=== PATIENT | female | born 1940 | race Caucasian/White ===

== ENCOUNTER 2021-06-23 20:36 | Emergency (ER) | payer OTHER ==
[~2021-06-23] VITALS: Ht 165.1 cm; Wt 90.7 kg
--- NOTE | ~2021-06-23 | EMS ---
[place] [address] EMS Patient Care Report Name: ROSA HENSON [id number] Admission: 06/23/21 Attend Phys: Discharge: 06/23/21 Date of : 38 Report #: [id number] THIS REPORT FOR: //name// Report Transmitted: 06/24/2021 14:46 EMS Care Summary [facility]ident [id number] @ 06/23/2021 19:38 Incident Location [address] [place] [address] Patient ROSA HENSON Female, 81 Years 1940 Patient Address [address] [place], [place] [id number] Patient History Chronic Obstructive Pulmonary Disease (COPD),Breast Cancer,Depression,Anxiety,Urinary Incontinence, Patient Allergies No known allergies, Patient Medications Oxygen, Chief Complaint SHORT OF AIR Disposition Transported No Lights/[place] Dispatch Reason Breathing Problem Transported To [facility] Narrative MED 1 WAS DISPATCHED TO A GAS STATION FOR A SHORTNESS OF BREATH. MED 1 ARRIVED ON SCENE WITHOUT INCIDENT. [place] [id number] EMS Patient Care Report Name: ROSA HENSON Room: [facility]#: [id number] Admission: 06/23/21 Attend Phys: Discharge: 06/23/21 Date of : 38 Report #: [id number] THE PATIENT WHO GOES BY ROSA WAS FOUND ALERT AND ORIENTED WORKING TO BREATH. ROSA STATED THAT SHE HAD BEEN HAVING A HARD TIME BREATHING ALL DAY BUT IT HAS BEEN GETTING WORSE AND SHE DOES NOT THINK THAT SHE CAN MAKE IT HOME. ROSA ALSO STATED THAT SHE THOUGHT THAT HER OXYGEN CONCENTRATOR WAS NOT WORKING RIGHT SO SHE WAS NOT GETTING THE OXYGEN SHE NEEDED. ROSA IS ASSISTED OVER TO THE COT WHERE THE STRAPS ARE FASTENED AND TITHE RAILS PLACED IN THE UPRIGHT POSITION. THE COT IS SECURED IN THE BACK OF THE AMBULANCE WITH THE DOORS CLOSED. VITALS AND A 12-LEAD ARE TAKEN VASCULAR ACCESS IS OBTAINED. MED 1 BEGAN TRANSPORT. EN ROUTE ROSA REST ON THE COT IN NO APPARENT DISTRESS. VITALS ARE MONITORED MEDICAL HISTORY AND ALLERGIES ARE RECEIVED. RADIO REPORT IS GIVEN TO THE HOSPITAL WITH NO QUESTIONS OR ORDERS RECEIVED. MED 1 ARRIVED AT DESTINATION WITHOUT INCIDENT. PATIENT CARE AND REPORT IS GIVEN TO STAFF ROSA IS MOVED OVER TO THE BED IN ROOM 2. MED 1 CLEAR. CAITIE PASTOR, [id number] Initial Vitals @19:59P: 102,R: 22,Pain: 2/10,GCS: 15,SpO2: 98,Revised Trauma: 12, @20:32P: 106,R: 26,BP: 146/91,Pain: 2/10,GCS: 15,EtCO2: 40,SpO2: 98,Revised Trauma: 12, @20:02P: 111,R: 36,Pain: 2/10,GCS: 15,EtCO2: 40,SpO2: 98, @20:07P: 109,R: 23,BP: 146/97,Pain: 2/10,GCS: 15,Temp: 98F,Glucose: 134,EtCO2: 41,SpO2: 100,Revised Trauma: 12, @20:22P: 106,R: 24,BP: 142/93,Pain: 2/10,GCS: 15,EtCO2: 40,SpO2: 98,Revised Trauma: 12, Assessments @20:00MENTAL:Person Oriented,Time Oriented,Place Oriented,Event Oriented,SKIN:HEENT:LUNG SOUNDS:ABDOMEN:PELVIS//GI:EXTREMITIES:Capillary Refill: Right Upper: < 2 Sec,Capillary Refill: Left Lower: < 2 Sec,Capillary Refill: Right Lower: < 2 Sec,Capillary Refill: Left Upper: < 2 Sec,PULSE:Radial: 2+ Normal,NEURO:@20:28MENTAL:Time Oriented,Place Oriented,Event Oriented,Person Oriented,SKIN:HEENT:LUNG SOUNDS:ABDOMEN:PELVIS//GI:EXTREMITIES:Capillary Refill: Left Upper: < 2 Sec,Capillary Refill: Right Upper: < 2 Sec,Capillary Refill: Left Lower: < 2 Sec,Capillary Refill: Right Lower: < 2 Sec,PULSE:Radial: 2+ Normal,NEURO: [place] [address] EMS Patient Care Report Name: ROSA HENSON [facility] [id number] Admission: 06/23/21 Attend Phys: Discharge: 06/23/21 Date of : 38 Report #: [id number] Impression Shortness of breath Procedures @19:50 ALS Assessment Response: UnchangedSucceeded @20:03 IV Therapy - Normal Saline (.9% NaCl) 10cc (20 ga) Site: Hand-Left Response: UnchangedSucceeded @20:02 12-Lead ECG Response: UnchangedSucceeded @20:10 12-Lead ECG Response: UnchangedSucceeded @19:50 Oxygen FlowRate: 2 Device: CO2 Nasal Cannula Response: ImprovedSucceeded Timeline 19:35,Call Received 19:38,Dispatched 19:40,En Route 19:48,On Scene 19:49,At Patient 19:50,ALS Assessment,Response: UnchangedSucceeded, 19:50,Oxygen FlowRate: 2 Device: CO2 Nasal Cannula Response: ImprovedSucceeded, 19:59,BP: 140/ M,PULSE: 102,RR: 22 R,SPO2: 98 Ox,ETCO2: ,BG: ,PAIN: 2,GCS: 15, 20:02,12-Lead ECG,Response: UnchangedSucceeded, 20:02,BP: / M,PULSE: 111,RR: 36 R,SPO2: 98 Ox,ETCO2: 40 ,BG: ,PAIN: 2,GCS: 15, 20:03,IV Therapy - Normal Saline (.9% NaCl) 10cc 20 ga Site: Hand-Left,Response: UnchangedSucceeded, 20:06,Depart Scene 20:07,BP: 146/97 M,PULSE: 109,RR: 23 R,SPO2: 100 Ox,ETCO2: 41 ,B,PAIN: 2,GCS: 15, 20:10,12-Lead ECG,Response: UnchangedSucceeded, 20:22,BP: 142/93 M,PULSE: 106,RR: 24 R,SPO2: 98 Ox,ETCO2: 40 ,BG: ,PAIN: 2,GCS: 15, 20:31,At Destination 20:32,BP: 146/91 M,PULSE: 106,RR: 26 R,SPO2: 98 Ox,ETCO2: 40 ,BG: ,PAIN: 2,GCS: 15, 21:12,Call Closed Disclaimer v1.1 Copyright 2020 [employer] This EMS Care Summary contains data elements from the applicable legal record (which may be displayed differently). It is designed to provide pertinent information for the following purposes: continuity of care, clinical quality, and state data reporting. The complete legal record is available to ED staff and administrators of the receiving hospital in [facility]'s Patient Tracker. All data is provided "as is."
[2021-06-23] MEDS ORDERED: ZOLOFT50 M1 PO (20:40)
[2021-06-23 21:08] LABS: INFLUENZA A ANTIGEN Negative (Negative); INFLUENZA B ANTIGEN Negative (Negative)
[2021-06-23 22:06] LABS: ABSOLUTE BASOPHILS 0.1 thou/uL (0.0-0.2); ABSOLUTE EOSINOPHILS 0.1 thou/uL (0.0-0.7); ABSOLUTE LYMPHOCYTES 1.7 thou/uL (0.8-5.3); ABSOLUTE MONOCYTES 0.9 thou/uL (0.0-1.2); ABSOLUTE NEUTROPHILS 8.7 thou/uL (1.6-8.1); BASOPHILS 0.9 %; EOSINOPHILS 1.1 %; HEMATOCRIT 40.8 % (37.0-47.0); HEMOGLOBIN 13.2 gm/dL (12.0-15.0); LYMPHOCYTES 14.5 %; MCH 28.6 pg (26.0-34.0); MCHC 32.5 g/dL (28.0-37.0); MONOCYTES 7.7 %; MPV 7.9 fl. (7.2-11.1); NUCLEATED RBCS 0 /100WBC; PLATELET COUNT* 223 thou/uL (150-400); POLYS 75.8 %; RBC 4.64 mil/uL (4.20-5.00); RDW-CV 14.6 % (10.5-14.5); WBC 11.5 thou/uL (4.0-11.0)
[2021-06-23 22:12] LABS: CALCIUM 8.8 mg/dL (8.5-10.1); CREATININE 0.9 mg/dL (0.6-1.3); POTASSIUM 4.8 mmol/L (3.5-5.1)
[2021-06-23] MEDS ORDERED: TRELEGY ELLIPT1 EACH INH (22:21)
[2021-06-23] MEDS ORDERED: PREDNISONE50 MG PO (23:09)
[2021-06-23 23:16] VITALS: BP 164/70
--- NOTE | 2021-06-24 10:47 | EKG ---
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 : 1940 Requested By: Marybel Antonio Order Number: [id number] MD: Jesus Alberto Covarrubias Measurements Intervals [place] Rate: 105 P: MO: QRS: -55 QRSD: 105 T: 78 QT: 329 QTc: 435 Interpretive Statements sinus tachycardia with pac's Left anterior fascicular block Abnormal R-wave progression, 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
== END 2021-06-23 23:17 | disposition home or self-care (01) ==
LOC: M.ERS 20:36
PROVIDERS: Emergency Medicine
DX: R06.00 Dyspnea, unspecified (principal); Z20.822 Contact with and (suspected) exposure to COVID-19; J44.9 Chronic obstructive pulmonary disease, unspecified; Z88.6 Allergy status to analgesic agent; Z87.891 Personal history of nicotine dependence; Z79.899 Other long term (current) drug therapy